=== PATIENT | female | born 1960 | race Caucasian/White ===

== ENCOUNTER 2017-03-17 14:14 | Outpatient (CLI) | payer OTHER ==
--- NOTE | 2017-03-17 17:22 | RAD ---
LUMBAR SPINE FOUR VIEW 03/17/17 HISTORY: Acute bilateral back pain with right sided sciatic. COMPARISON: None. FINDINGS: Mild dextroscoliosis of the lumbar spine. There is an anomalous articulation and large right L5 reyes sverse process with the sacrum. There is sclerosis on either side of this articulation. Osteoarthrosis lower lumbar spine. There is also anterolisthesis of L3 over L4 approximately 4 mm. Flexion and extension views may be h elpful. 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 There is subsequent mild dextroscoliosis. POS: [facility]
== END 2017-03-17 14:15 | disposition home or self-care (01) ==
LOC: MADRAD 14:14
PROVIDERS: ATTEND Family Medicine
DX: M54.41 Lumbago with sciatica, right side (principal); M41.9 Scoliosis, unspecified
CPT/HCPCS: 72110

== ENCOUNTER 2017-05-31 10:59 | Emergency (ER) | payer OTHER, SELFPAY ==
[~2017-05-31 10:59] MED LIST: Sodium Chloride 0.9% 1,000 ML BAG ONE
[2017-05-31 11:59] LABS: #Eosinphils 0.1 thou/uL (0.0-0.7); #Monocytes 0.5 thou/uL (0.11-0.59); #Neutrophils 5.3 thou/uL (1.40-6.50); %Basophils 0.4 % (0.0-1.0); %Lymphocytes 14.9 % (21.0-51.0); %Monocytes 7.3 % (0.0-10.0); %Neutrophils 76.4 % (42.0-75.0); Mean Corpuscular HGB CONC 34.5 g/dL (32.0-36.0); Mean Corpuscular Hemoglobin 31.2 pg (27.0-31.0); Mean Corpuscular Volume 90.4 fl (81.0-99.0); Platelet Count 206 thou/uL (130-400); RBC Distribution Width 12.2 % (11.5-14.5); Red Blood Cell (RBC) Count 4.18 mill/uL (4.20-5.40); White Blood Cell (WBC) Count 6.9 thou/uL (4.8-10.8)
[2017-05-31] MEDS ORDERED: Meclizine HCl 25 MG TAB ONE (12:10)
[2017-05-31] MEDS ORDERED: Ketorolac Tromethamine 30 MG/ML VIAL ONE (12:10)
[2017-05-31] MEDS ORDERED: Ondansetron HCl/PF 4 MG/2 ML Vial ONE (12:10)
[2017-05-31 12:12] LABS: Bilirubin Negative (Negative); Blood, Urine Negative (Negative); Clarity Clear (Clear); Glucose, Urine (Dipstick) Negative (Negative); Leukocyte Trace (Negative); Nitrite Negative (Negative); Protein, Urine (Dipstick) Negative (Neg-Trace); Urobilinogen 0.2 mg/dL (0.2-1.0); pH, Urine 7.5 (5.0-9.0)
[2017-05-31 12:14] LABS: ALT (SGPT) 43 U/L (8-55); AST (SGOT) 54 U/L (5-34); Albumin 3.6 g/dL (3.5-5.0); Alkaline Phosphatase 193 U/L (40-150); Anion Gap 16 mmol/L (10-20); BUN (Urea Nitrogen) 7 mg/dL (9.8-20.1); Bilirubin, Total 0.5 mg/dL (0.2-1.2); CRP (Inflammatory) 8.72 mg/dL (= or < 0.5); Calc. Creatinine Clearance 0 mL/min (70-130); Calcium 8.9 mg/dL (7.8-10.44); Carbon Dioxide 24 mmol/L (22-29); Chloride 101 mmol/L (98-107); Estimated GFR-MDRD 73; Globulin 2.6 g/dL (2.4-3.5); Glucose 109 mg/dL (70-105); Magnesium 1.8 mg/dL (1.6-2.6); Potassium 3.8 mmol/L (3.5-5.1); Protein, Total 6.2 g/dL (6.0-8.3); Sodium 137 mmol/L (136-145)
[2017-05-31 12:15] LABS: Phosphorus 2.4 mg/dL (2.3-4.7)
[2017-05-31 12:17] LABS: Bacteria/HPF Rare-Few HPF (None Seen); RBC/HPF None Seen HPF (0-3)
--- NOTE | 2017-05-31 13:18 | CT ---
CT HEAD WITHOUT IV CONTRAST: Date: 05/31/17 HISTORY: Dizziness for 1 month. COMPARISON: 01/24/17. FINDINGS: There is no evidence of a hemorrhage, acute infarction, mass effect, or midline shift. Ventricular s ystem is normal in size, shape, and position. There has been no interval change when compared to the prior exam. IMPRESSION: No acute intracranial abnormality is demonstrated. POS: [facility]
[2017-05-31] MEDS ORDERED: HYDROcodone/Acetaminophen 10/325 mg Tablet ONE (13:38)
[2017-05-31] MEDS ORDERED: Morphine 10 MG/ML VIAL ONE (14:29)
== END 2017-05-31 16:45 | disposition home or self-care (01) ==
LOC: MADERS 10:59
DX: G25.81 Restless legs syndrome (principal); M41.9 Scoliosis, unspecified; M54.5 Low back pain; R51 Headache; R42 Dizziness and giddiness; F41.9 Anxiety disorder, unspecified; F32.9 Major depressive disorder, single episode, unspecified; F20.9 Schizophrenia, unspecified
CPT/HCPCS: 36415; 70450; 80053; 81001; 83690; 83735; 84100; 84443; 85025; 86140; 87086; 96361; 96374; 96375; J1885; J2270; J2405; J7050

== ENCOUNTER 2017-06-06 21:36 | Emergency (ER) | payer SELFPAY ==
[2017-06-06] MEDS ORDERED: Ketorolac Tromethamine 30 MG/ML VIAL ONE (22:33)
[2017-06-06] MEDS ORDERED: Fentanyl 100 MCG/2 ML VIAL ONE (22:33)
[2017-06-06] MEDS ORDERED: Ondansetron HCl/PF 4 MG/2 ML Vial ONE (22:33)
--- NOTE | 2017-06-06 22:41 | CT ---
EXAM: NONCONTRAST HEAD CT 06/06/17 HISTORY: Trauma. Pain. COMPARISON: 01/24/2017, 05/31/2017. TECHNIQUE: Noncontrast head CT is performed from skull base to skull vertex. Reformatted images are submitted f or interpretation. FINDINGS: There is left facial soft tissue swelling and hematoma. There is adequate aeration of the visualized paranasal sinuses with the exception of the left maxillary sinus which appears to have a large muco us retention cyst. Mastoid air cells are adequately aerated. No parenchymal hemorrhage. No extra-axial hematoma. No midline shift. Basilar cisterns are patent. B rain volume, age appropriate. Cortical chavez-white matter differentiation is preserved. Ventricles and sulci are patent and symmetric. Calvarium is intact. IMPRESSION: 1. No intracranial posttraumatic sequela. 2. Left facial posttraumatic swelling and hematoma. POS: [facility]
--- NOTE | 2017-06-06 22:44 | CT ---
EXAM: CERVICAL SPINE CT WITHOUT CONTRAST 06/06/17 HISTORY: Trauma. Pain. COMPARISON: None. TECHNIQUE: Cervical spine CT is performed without contrast. Coronal reformatted images and sagittal reformatted images are submitted for interpretation. FINDINGS: The visualized soft tissue neck structures, upper mediastinum and lung apices are unremarkable. Cent ral spinal and neural foramina are patent. No high grade stenosis. Evaluation is limited by techniqu e. Straightening of the normal cervical lordosis which may be due to patient position, muscle spasm or cervical collar. Current study is not tailored to assess for ligamentous injury. Cervical spine vertebral body height is maintained. No fracture. Mild degenerative change at C5-C6. Appropriate articulation of the facets and lateral mass of C1 and C2. Odontoid process is intact. IMPRESSION: No fracture. POS: [facility]
--- NOTE | 2017-06-06 22:48 | CT ---
EXAM: THORACIC SPINE CT WITHOUT CONTRAST 06/06/17 HISTORY: Pain. Trauma. Evaluation for fracture. COMPARISON: None. TECHNIQUE: Thoracic spine CT is performed without contrast. Reformatted images submitted for interpretation. FINDINGS: The visualized mediastinal structures are unremarkable. Trachea and central bronchi are patent. The visualized lung parenchyma do not demonstrate any consolidation or masses. No evidence of pleural ef fusion or pneumothorax. The visualized upper solid organs are unremarkable. There is appropriate alignment of the thoracic vertebral bodies on the sagittal and coronal reformat alvin images. Vertebral body height is maintained. There is no acute fracture. Remote Schmorl's node a long the superior end plate of T3 is noted. No high grade central canal stenosis or high grade foraminal narrowing. Evaluation is limited by matthew hnique. IMPRESSION: No fracture. POS: [facility]
--- NOTE | 2017-06-06 22:59 | CT ---
EXAM: LUMBAR SPINE CT WITHOUT CONTRAST 06/06/17 HISTORY: Fall. Trauma. Pain. COMPARISON: None. FINDINGS: No retroperitoneal mass, lymphadenopathy, or hematoma. The visualized solid organs and alimentary canal are grossly unremarkable. There is 4.5 mm of anterolisthesis of L3 upon L4 likely due to degenerative change. Vacuum disc phen omenon at L3-L4 is noted. Lumbar spine vertebral body heights are maintained. No acute fracture. There is pseudarthrosis of the right L5 ala with the sacrum. Limited evaluation of the contents of the central spinal canal and neural foramina due to technique. T12-L1, L1-L2: No significant central canal stenosis or foraminal narrowing. L2-L3: No high grade central canal stenosis or high grade foraminal narrowing. L3-L4: Vacuum disc phenomenon. Broad based disc bulge, ligamentous flavum thickening, and facet hype rtrophy results in moderate central canal stenosis. Mild bilateral foraminal narrowing. L4-L5: Broad based disc bulge, ligamentum flavum thickening and facet hypertrophy results in mild ce ntral canal stenosis. Mild bilateral foraminal narrowing. L5-S1: No high grade central canal stenosis. No high grade foraminal narrowing. IMPRESSION: 1. No fracture. 2. Degenerative changes of the lumbar spine at L3-L4 and L4-L5 as detailed above. POS: [facility]
== END 2017-06-06 23:15 | disposition home or self-care (01) ==
LOC: MADERS 21:36
DX: S00.83XA Contusion of other part of head, initial encounter (principal); F32.9 Major depressive disorder, single episode, unspecified; F41.9 Anxiety disorder, unspecified; F20.9 Schizophrenia, unspecified; R56.9 Unspecified convulsions; I10 Essential (primary) hypertension; Y04.2XXA Assault by strike against or bumped into by another person, initial encounter
CPT/HCPCS: 70450; 72125; 72128; 72131; J1885; J2405; J3010

== ENCOUNTER 2017-06-15 16:57 | Emergency (ER) | payer SELFPAY ==
[2017-06-15] MEDS ORDERED: Morphine 4 MG/ML VIAL ONE (18:13)
[2017-06-15] MEDS ORDERED: MORPHINE 10 MG/ML SYRINGE ONE (18:14)
== END 2017-06-15 18:30 | disposition home or self-care (01) ==
LOC: MADERS 16:57
DX: S06.0X0A Concussion without loss of consciousness, initial encounter (principal); S00.83XA Contusion of other part of head, initial encounter; S00.12XA Contusion of left eyelid and periocular area, initial encounter; M54.5 Low back pain; F32.9 Major depressive disorder, single episode, unspecified; F20.9 Schizophrenia, unspecified; F41.9 Anxiety disorder, unspecified; Z79.899 Other long term (current) drug therapy; Y04.0XXA Assault by unarmed brawl or fight, initial encounter
CPT/HCPCS: 96372; J2270